=== PATIENT | female | born 1990 | race Caucasian/White ===

== ENCOUNTER 2024-04-02 14:13 | Emergency (ER) | payer MEDICAID ==
[2024-04-02] MEDS: Lidocaine 2% 20 ML MDV ONE (14:36)
[2024-04-02 14:40] LABS: APPEARANCE,URINE CLOUDY (CLEAR); BILIRUBIN,URINE NEGATIVE (NEGATIVE); COLOR,URINE YELLOW (YELLOW); GLUCOSE,URINE NEGATIVE (NEGATIVE); KETONES,URINE NEGATIVE (NEGATIVE); LEUKOCYTE ESTERASE,URINE NEGATIVE (NEGATIVE); NITRITE,URINE POSITIVE (NEGATIVE); OCCULT BLOOD,URINE NEGATIVE (NEGATIVE); PH,URINE 8.5 (5.0-9.0); PROTEIN,URINE TRACE (NEGATIVE)
[2024-04-02 14:48] LABS: BACTERIA,URINE MANY /HPF (0-FEW/HPF); RBC,URINE 0-5 /HPF (0-5); WBC,URINE 0-5 /HPF (0-5/HPF)
[2024-04-02 14:49] LABS: EPITHELIAL CELLS,URINE FEW /HPF (NOT SEEN)
[2024-04-02] MEDS: cefTRIAXone 1 GM, Lidocaine 1% 2.1 ML IM ONE (15:01)
== END 2024-04-02 15:14 | disposition home or self-care (01) ==
LOC: DL.ED 14:13
DX: N30.00 Acute cystitis without hematuria (principal); F17.210 Nicotine dependence, cigarettes, uncomplicated; Z88.8 Allergy status to other drugs, medicaments and biological substances
CPT/HCPCS: 81001; 87086; 87088; 87186; 96372; 99283; J0696; J3490

== ENCOUNTER 2024-05-30 21:00 | Emergency (ER) | payer MEDICAID ==
[2024-05-30] MEDS: Ketorolac 30 MG/ML SDV IM ONE (22:04)
[2024-05-30] MEDS: Cyclobenzaprine 10 MG Tab PO ONE (22:06)
[2024-05-30] MEDS: Take Home: Cyclobenzaprine 10 MG Tab, 4 Tab Pack PO ONE (22:07)
== END 2024-05-30 22:32 | disposition home or self-care (01) ==
LOC: DL.ED 21:00
DX: S76.012A Strain of muscle, fascia and tendon of left hip, initial encounter (principal); G44.209 Tension-type headache, unspecified, not intractable; M62.830 Muscle spasm of back; F17.210 Nicotine dependence, cigarettes, uncomplicated; Z88.8 Allergy status to other drugs, medicaments and biological substances; Z90.710 Acquired absence of both cervix and uterus; W10.8XXA Fall (on) (from) other stairs and steps, initial encounter
CPT/HCPCS: 96372; 99283; A9270; J1885

== ENCOUNTER 2024-08-09 15:21 | Emergency (ER) | payer MEDICAID ==
[2024-08-09 16:21] LABS: APPEARANCE,URINE CLEAR (CLEAR); BILIRUBIN,URINE NEGATIVE (NEGATIVE); COLOR,URINE YELLOW (YELLOW); GLUCOSE,URINE NEGATIVE (NEGATIVE); KETONES,URINE NEGATIVE (NEGATIVE); LEUKOCYTE ESTERASE,URINE NEGATIVE (NEGATIVE); NITRITE,URINE NEGATIVE (NEGATIVE); OCCULT BLOOD,URINE TRACE-INTACT (NEGATIVE); PROTEIN,URINE 30 (NEGATIVE); UROBILINOGEN,URINE 0.2 mg/dL (0.2-1.0)
[2024-08-09 16:32] LABS: AMORPHOUS SEDIMENT,URINE FEW /HPF (NOT SEEN); BACTERIA,URINE FEW /HPF (0-FEW/HPF); EPITHELIAL CELLS,URINE MODERATE /HPF (NOT SEEN); MUCUS,URINE MANY /LPF (NOT SEEN); WBC,URINE 0-5 /HPF (0-5/HPF)
[2024-08-09 16:51] LABS: BASOPHILS PERCENT AUTO 0.4 % (0.0-1.0); EOSINOPHILS PERCENT AUTO 4.1 % (1.0-3.0); HEMATOCRIT 38.4 % (37.0-47.0); HEMOGLOBIN 12.6 g/dL (12.0-16.0); LYMPHOCYTES PERCENT AUTO 24.7 % (20.5-50.1); MEAN CORPUSCULAR HEMOGLOBIN 31.4 pg (27.0-34.0); MEAN CORPUSCULAR HGB CONC 32.8 g/dL (33.0-35.0); MEAN CORPUSCULAR VOLUME 95.8 fL (80-100); MONOCYTES PERCENT AUTO 8.3 % (2-8); NEUTROPHILS PERCENT AUTO 62.5 % (42.2-75.2); PLATELET COUNT,PLT 232 10^3/uL (150-450); RED BLOOD CELL COUNT 4.01 10^6/uL (4.2-5.4); WHITE BLOOD CELL COUNT,WBC 8.2 10^3/uL (5.0-10.0)
[2024-08-09 17:07] LABS: C-REACTIVE PROTEIN 2.98 ng/dL (<=0.50); MAGNESIUM 2.4 mg/dL (1.8-2.4)
== END 2024-08-09 17:33 | disposition home or self-care (01) ==
LOC: DL.ED 15:21
DX: K52.9 Noninfective gastroenteritis and colitis, unspecified (principal); Z88.8 Allergy status to other drugs, medicaments and biological substances; Z79.899 Other long term (current) drug therapy; Z90.49 Acquired absence of other specified parts of digestive tract
CPT/HCPCS: 36415; 81001; 83735; 85025; 86140; 99283; 99284